=== PATIENT | male | born 1970 | race Caucasian/White ===

== ENCOUNTER → 2020-02-20 | Day surgery (SDC) | payer OTHER ==
[~2020-02-20] VITALS: Ht 172.7 cm; Wt 81.6 kg
[~2020-02-20] MED LIST: DEXAMETHASONE SOD PHOS INJ 4 MG/ML VIAL ONE; GLUCAGON FOR INJ 1 MG VIAL IV ONE; KETOROLAC TROMETHAMINE 30 MG/ML VIAL ONE; LIDOCAINE HCL 2% LOCAL INJ 5 ML SDV VIAL INJ ONE; LORAZEPAM INJ 2 MG/ML VIAL IV ONE; ONDANSETRON HCL INJ 2MG/ML 2ML 2 MG/ML VIAL IV PRN; ONDANSETRON HCL INJ 2MG/ML 2ML 2 MG/ML VIAL ONE; PANTOPRAZOLE 40 MG 10ML VIAL IV ONE; PANTOPRAZOLE 40 MG 10ML VIAL ONE; PROPOFOL IV EMULSION 10 MG/ML 20 ML VIAL ONE; ROCURONIUM BROMIDE 10 MG/ML 5ML VIAL IV ONE; SEVOFLURANE INHAL SOLN 250 ML PEN BTL ONE; SODIUM CHLORIDE 0.9% 1000ML 1,000 ML IV SCH; SODIUM CHLORIDE 0.9% 1000ML 1,000 ML IV STA; SODIUM CHLORIDE 0.9% 50ML 50 ML ONE; SUCCINYLCHOLINE CHLORIDE 20 MG/ML 10ML VIAL ONE
--- NOTE | 2020-02-20 18:39 | Emergency Department Note ---
History of Present Illnes History of Present Illness History of Present Illness This is a 49 year old male . Arrival Mode: Car Tricot Knitter Required: No Onset (how long ago): day(s) (1) Radiation: non-radiation, abdomen Severity: mild Onset quality: sudden Duration (how long): day(s) (1) Timing of current episode: constant Progression: unchanged Chronicity: recurrent Relieving factors: none Exacerbating factors: none Associated symptoms: denies other symptoms Treatments prior to arrival: none (VERENICE HAN NP) Past Medical/Family History Physician Review I have reviewed the patient's past medical and family history. Any updates have been documented here. (VERENICE HAN NP) Social History Any Illegal Drug Use: No TB Exposure/Symptoms: No Physically hurt or threatened: No (VERENICE HAN NP) Family History Family history of heart diseas: No (VERENICE HAN NP) Other Any Pre-Existing Lines (PICC,: No Is patient up to date on immun: No (VERENICE HAN NP) Review of Systems ROS Narrative PATIENT IS A 49 YEAR OLD MALE THAT PRESENTS WITH FB SENSATION TO HIS ESOPHAGUS . PATIENT STATES THAT HE HAS ISSUES AND A PAST STRICTURE OF HIS ESOPHAGUS. WENT TO DR Arnulfo MENDEZ AND WAS REFERRED HERE FOR ADMISSION. SPOKE TO DR WATKINS. (VERENICE HAN NP) Review of Systems Constitutional: no symptoms EENTM: no symptoms Cardiovascular: no symptoms Respiratory: no symptoms Gastrointestinal: no symptoms Genitourinary: no symptoms Musculoskeletal: no symptoms Neurological: no symptoms Psychological: no symptoms Endocrine: no symptoms Hematological/Lymphatic: no symptoms Review of other systems All other systems reviewed and negative. (VERENICE HAN NP) Physical Exam Related Data Allergies: Coded Allergies: No Known Allergies (Unverified , 02/20/20) Vital signs reviewed: Yes (VERENICE HAN NP) Physical Exam CONSTITUTIONAL Constitutional: well-developed, well-nourished HENT HENT: normocephalic, atraumatic, oropharynx clear/moist, nose normal HENT L/R: left ext ear normal, right ext ear normal EYES Eyes: PERRL, conjunctivae normal NECK Neck: ROM normal PULMONARY Pulmonary: effort normal, breath sounds normal CARDIOVASCULAR Cardiovascular: regular rhythm, heart sounds normal, capillary refill normal, normal rate GASTROINTESTINAL Abdominal: soft, nontender, bowel sounds normal, other (PATIENT FEELS SOMETHIN IN HIS ESOPHAGUS ) GENITOURINARY Genitourinary: exam deferred SKIN Skin: warm, dry MUSCULOSKELETAL Musculoskeletal: ROM normal NEUROLOGICAL Neurological: alert, oriented x 3, no gross motor or sensory deficits PSYCHOLOGICAL Psychological: mood/affect normal, judgement normal (VERENICE HAN NP) Results Laboratory Lab results reviewed: Yes (VERENICE HAN NP) Procedures 12 Lead ECG Interpretation Tricot Knitter: Interpreted by ED physician (JUNE) Date: February 20, 2020 Time: 18:[address] EQUIPMENT OPERATOR tracings: reviewed Clinical Impression: normal ECG (VERENICE HAN NP) Critical Care Time Subsequent provider I assumed direction of critical care for this patient from another provider of my specialty. (VERENICE HAN NP) Assessment & Plan Assessment & Plan Final Impression: (1) Esophageal foreign body Assessment & Plan BLOOD WORK, EKG AND CXR FOR ADMISSION AND POSSIBLE SURGERY (VERENICE HAN NP) Medications in the ED Pantoprazole Sodium 40 mg ONCE STAT IV ; Start 02/20/20 at 18:11; Stop 02/20/20 at 18:12; Status UNV Sodium Chloride 1,000 ml @ 0 mls/hr Q0M STAT IV ; Start 02/20/20 at 18:11; S top 02/20/20 at 18:14; Status DC Glucagon 1 mg ONCE ONCE IV ; Start 02/20/20 at 18:15; Stop 02/20/20 at 18:16; Status DC Lorazepam 0.5 mg ONCE ONCE IV ; Start 02/20/20 at 18:15; Stop 02/20/20 at 18:16; Status UNV (VERENICE HAN NP) Physician Attestation Provider Attestation The patient's history, exam findings, diagnostics, and a summary of any interventions or procedures was reviewed in detail with our MARILEE. I personally interviewed and examined the patient, and I have reviewed and agree with the HPI andexam. My personal exam shows no abd tenderness, NABS, CV- RRR. I confirm the diagnosis as documented by the MARILEE. I have reviewed and agree with the care plan articulated in the disposition section. I spoke with Dr Mj Escalante - will take pt to endoscopy for EGD. I spoke with Dr Yoko Escalante for admission (BEENA WATKINS MD) VERENICE HAN NP February 20, 2020 18:39 BEENA WATKINS MD February 20, 2020 18:55
[2020-02-20 18:45] LABS: BASOPHILS # (AUTO) 0.1 (0.0-0.1); BASOPHILS % 0.9 % (0.0-1.0); EOSINOPHILS # (AUTO) 0.1 (0.0-0.4); EOSINOPHILS % 1.7 % (0.0-6.0); HEMATOCRIT 45.5 % (38.2-49.6); LYMPHOCYTES # (AUTO) 1.1 (1.0-3.2); MEAN CORPUSCULAR HEMOGLOBIN 28.5 pg (28-32); MEAN CORPUSCULAR VOLUME 86.5 fL (81-99); MONOCYTES # (AUTO) 0.4 (0.2-0.8); MONOCYTES % 5.3 % (4.4-11.3); NEUTROPHILS # (AUTO) 5.4 (2.1-6.9); NEUTROPHILS % 76.8 % (38.7-80.0); PLATELET COUNT 232 x10e3/uL (140-360); RED BLOOD COUNT 5.26 x10e6/uL (4.3-5.7); RED CELL DISTRIBUTION WIDTH 13.2 % (11.7-14.4)
--- NOTE | 2020-02-20 18:51 | Diagnostic Imaging Report ---
Examination: Single AP view of the chest. COMPARISON: None. INDICATION: Possible foreign body DISCUSSION: Lines/tubes: None. Lungs: The lungs are well inflated and clear. No pneumonia or pulmonary edema. Pleura: No pleural effusion or pneumothorax. Heart and mediastinum: The heart and the mediastinum are unremarkable. Bones and soft tissues: No acute bony abnormalities. IMPRESSION: 1. No acute cardiopulmonary abnormalities. Signed by: Dr. Charlie Smith M.D. on 02/20/2020 6:48 PM
[2020-02-20 18:56] LABS: INR 0.83; PROTHROMBIN TIME 11.9 seconds (11.9-14.5)
[2020-02-20 18:57] LABS: PARTIAL THROMBOPLASTIN TIME 28.1 seconds (23.8-35.5)
--- OUTSIDE RECORDS SUMMARY | 2020-02-20 18:58 | XMS REPORT ---
Author Author [facility] Organization [facility] Address [address] [place] [address] Phone Unavailable Care Team Providers Care Dog Trainer Name Role Phone Agustín WATKINS Attphys Unavailable ARELI BELTRAN Admphys Unavailable Problems This patient has no known problems. Allergies, Adverse Reactions, Alerts This patient has no known allergies or adverse reactions. Medications This patient has no known medications. Procedures This patient has no known procedures. Results Test Description Test Time Test Comments Results Result Comments Source CHEST SINGLE (PORTABLE) 2020-02-20 18:48:[address] [address] Patient Name: BLANCO MACKAY MR #: [id number] : 1970 Age/Sex: 49/M Req #: [id number] Adm Physician: Ordered by: BEENA WATKINS MD Report #: [id number] Location: ER Room/Bed: Procedure: [id number] DX/CHEST SINGLE (PORTABLE) Exam Date: 02/20/20 Exam Time: 182 REPORT STATUS: Signed Examination: Single AP view of the chest. COMPARISON: None. INDICATION: Possible foreign body DISCUSSION: Lines/tubes: None. Lungs: The lungs are well inflated and clear. No pneumonia or pulmonary edema. Pleura: No pleural effusion or pneumothorax. Heart and mediastinum: The heart and the mediastinum are unremarkable. Bones and soft tissues: No acute bony abnormalities. IMPRESSION: 1. No acute cardiopulmonary abnormalities. Signed by: Dr. Sunshine Pelaez M.D. on 02/20/2020 6:48 PM Dictated By: SUNSHINE PELAEZ MD 47 Transcribed By: ASTON on 02/20/201847 COPY TO: BEENA WATKINS MD
[2020-02-20 19:06] LABS: ALANINE AMINOTRANSFERASE 17 IU/L (0-55); ALBUMIN 4.7 g/dL (3.5-5.0); ALBUMIN/GLOBULIN RATIO 1.3 (0.8-2.0); ALKALINE PHOSPHATASE 85 IU/L (40-150); ANION GAP 16.9 mmol/L (8-16); BLOOD UREA NITROGEN 9 mg/dL (7-26); BUN/CREATININE RATIO 8 (6-25); CALCIUM 10.1 mg/dL (8.4-10.2); CARBON DIOXIDE 24 mmol/L (22-29); CHLORIDE 105 mmol/L (98-107); CREATINE KINASE 222 IU/L (30-200); CREATININE, SERUM 1.11 mg/dL (0.72-1.25); EST GLOMERULAR FILTRATION RATE > 60 ML/MIN (60-); GLUCOSE 90 mg/dL (74-118); POTASSIUM 3.9 mmol/L (3.5-5.1); SODIUM 142 mmol/L (136-145)
[2020-02-20 21:25] VITALS: BP 152/95
--- NOTE | 2020-02-21 01:03 | Operative Report ---
DATE OF PROCEDURE: 02/20/2020 SURGEON: Johnny Escalante MD PROCEDURE: EGD with foreign body removal, esophageal dilatation, and biopsies. INDICATIONS FOR EGD: Foreign body in esophagus. MEDICATIONS: The patient was done under general endotracheal anesthesia. Please see anesthesiologist's note. PROCEDURE IN DETAIL: With the patient in the left lateral decubitus position, after adequate induction of general endotracheal anesthesia, a flexible fiberoptic Olympus gastroscope was introduced into the esophagus under direct visualization without any difficulty. Some longitudinal furrows and concentric rings were noted compatible with eosinophilic esophagitis and biopsies were obtained. A large meat bolus was noted, lodged in the distal esophagus and that was removed per polypectomy snare. The scope was then reintroduced into the esophagus and there was a diffuse erythema and [id number] edema noted in distal esophagus. There was a mild stricture noted in the distal esophagus that was dilated to size 48-English Martinez. The scope was then advanced with ease into the stomach. Mucosa overlying the antrum and the body revealed some patchy erythema and low-grade edema and biopsies were obtained and sent to stain for H. pylori. The pylorus was of normal contour and shape, was intubated with ease and the scope was advanced all the way to the second portion of the duodenum. Biopsies were obtained from the proximal second portion and duodenal bulb to rule out sprue. Some several minute ulcers were noted in the proximal second portion and duodenal bulb, they were superficial and without any active bleeding or stigmata of recent hemorrhage. The scope was then withdrawn back into the stomach and retroflexed mucosa overlying the fundus and cardia appeared to be within normal limits. The scope was then straightened out, it was subsequently withdrawn. The patient tolerated procedure well. IMPRESSION: 1. Rule out eosinophilic esophagitis. 2. Bolus of meat lodged in distal esophagus, removed per polypectomy snare. 3. Distal esophagitis. 4. Esophageal stricture at the GE junction dilated to size 48-English Martinez. 5. Gastritis, biopsied. Biopsies sent to stain for Helicobacter pylori. 6. Duodenal ulcers, several, minute, bulb, proximal second portion without active bleeding or stigmata of recent hemorrhage. 7. Rule out sprue. PLAN: Follow up histology. Initiate Protonix 40 mg one p.o. q.a.m. a.c. MD EDSON Mena/SCOOBYL /[id number] cc: Charlie Willis DO
== END | disposition home or self-care (01) ==
LOC: ER 17:50 → UNDOADMOB 18:48 → ERHOLD 18:48 → ENDO 19:32
PROVIDERS: ATTEND Internal Medicine Gastroenterology
DX: T18.128A Food in esophagus causing other injury, initial encounter (principal); K29.70 Gastritis, unspecified, without bleeding; K22.2 Esophageal obstruction; K29.80 Duodenitis without bleeding; K26.9 Duodenal ulcer, unspecified as acute or chronic, without hemorrhage or perforation; K20.9 Esophagitis, unspecified; K21.9 Gastro-esophageal reflux disease without esophagitis; X58.XXXA Exposure to other specified factors, initial encounter
CPT/HCPCS: 36415; 43239; 43247; 43450; 71045; 80053; 82550; 82553; 83690; 84484; 85025; 85610; 85730; 87635; 93005; 99284; C9113; J1610; J2060; J7030